=== PATIENT | female | born 1960 | race American Indian/Alaskan Native ===

== ENCOUNTER → 2016-04-19 08:05 | Outpatient (CLI) | payer MEDICARE ==
[2014-11-30 13:08] VITALS: BMI 26.3
[~2016-04-19 08:05] MED LIST: BAYER CHEWABLE81 MG PO; BUPROPION XL300 MG PO; COLACE100 MG PO; FERROUS SULFAT325 MG PO; FISH OIL 1,0001 CA1 PO; FLOVENT HFA 11012 GM INH; GLUCOPHAGE500 MG PO; IMITREX50 MG PO; LITHIUM CARBON300 MG PO; MACRODANTIN100 MG PO; NEURONTIN 400400 MG PO; NEXIUM40 MG PO; NIASPAN1000 MG PO; PHENERGAN25 M1 PO; PRAVACHOL80 MG PO; SEROQUEL300 MG PO; SINGULAIR10 MG PO; SYNTHROID50 MCG PO; TRAZODONE HCL150 MG PO; TRIGLIDE160 MG PO; ZANAFLEX4 MG PO; ZANTAC150 MG PO; ZOLOFT100 MG PO
== END | disposition home or self-care (01) ==
LOC: D.CT 08:00
DX: R10.11 Right upper quadrant pain (principal)

== ENCOUNTER 2017-06-12 17:10 | Emergency (ER) | payer MEDICARE ==
[2014-11-30 13:08] VITALS: BMI 26.3
[2017-06-12 17:49] LABS: BASOPHILS 0.2 % (0-2); EOSINOPHILS 1.7 % (0-7); HEMATOCRIT 38.6 % (36.0-48.0); IMMATURE GRANULOCYTES 0.1 % (0-5); LYMPHOCYTES 21.8 % (15-50); MCHC 33.7 g/dL (31.0-37.0); MCV 88.9 fL (80.0-100.0); MEAN PLATELET VOLUME 10.5 fL (7.4-10.4); MONOCYTES 7.2 % (2-11); RBC 4.34 10x6/uL (4.00-5.40); RDW 12.7 % (11.5-14.5); WBC 8.1 10x3/uL (4.8-10.8)
[2017-06-12 17:53] LABS: PLATELET COUNT 209 10x3/uL (130-400)
[2017-06-12 18:03] LABS: ALBUMIN 3.5 g/dL (3.4-5.0); ALKALINE PHOSPHATASE 120 U/L (46-116); ALT (SGPT) 39 U/L (10-68); CALC OSMOLALITY 271 mosm/kg (275-300); CALCIUM 8.8 mg/dL (8.5-10.1); CARBON DIOXIDE 26.4 mmol/L (21.0-32.0); CHLORIDE - SERUM 102 mmol/L (98-107); CREATININE - SERUM 0.7 mg/dL (0.6-1.3); GLUCOSE 124 mg/dL (74-106); SODIUM 136 mmol/L (136-145); UREA NITROGEN 10 mg/dL (7-18); eGFR NON AFRICAN AMERICAN > 90 mL/min (90-120)
[2017-06-12 18:16] LABS: UDS - AMPHET NEGATIVE QUAL (NEGATIVE); UDS - BARB NEGATIVE QUAL (NEGATIVE); UDS - BENZO NEGATIVE QUAL (NEGATIVE); UDS - COCAINE NEGATIVE QUAL (NEGATIVE); UDS - OPIATE NEGATIVE QUAL (NEGATIVE); UDS - PCP NEGATIVE QUAL (NEGATIVE); UDS - THC NEGATIVE QUAL (NEGATIVE)
[2017-06-12 19:59] LABS: APPEARANCE CLEAR (CLEAR); BILIRUBIN NEGATIVE (NEGATIVE); COLOR YELLOW (YELLOW); GLUCOSE NEGATIVE (NEGATIVE); KETONE NEGATIVE (NEGATIVE); NITRITE NEGATIVE (NEGATIVE); PROTEIN NEGATIVE (NEGATIVE); SPECIFIC GRAVITY 1.015 (1.005-1.020); UROBILINOGEN NORMAL (NORMAL)
== END 2017-06-12 23:33 ==
LOC: D.ER 17:10
PROVIDERS: Emergency Medicine
DX: R45.851 Suicidal ideations (principal); F33.9 Major depressive disorder, recurrent, unspecified; F17.200 Nicotine dependence, unspecified, uncomplicated; E11.9 Type 2 diabetes mellitus without complications

== ENCOUNTER 2017-08-28 02:32 | Emergency (ER) | payer MEDICARE ==
[2014-11-30 13:08] VITALS: BMI 26.3
[2017-10-29] MEDS ORDERED: PROVENTIL HFA6.7 GM INH (13:45)
[2017-10-29] MEDS ORDERED: PEPCID20 MG PO (13:46)
[2017-10-29] MEDS ORDERED: ATIVAN1 MG PO (13:47)
[2017-10-29] MEDS ORDERED: RISPERDAL1 MG PO (13:48)
== END 2017-08-28 05:32 | disposition home or self-care (01) ==
LOC: D.ER 02:32
DX: S43.004A Unspecified dislocation of right shoulder joint, initial encounter (principal); W19.XXXA Unspecified fall, initial encounter; Y93.89 Activity, other specified; Y92.019 Unspecified place in single-family (private) house as the place of occurrence of the external cause; Z85.3 Personal history of malignant neoplasm of breast; E11.9 Type 2 diabetes mellitus without complications; Z90.13 Acquired absence of bilateral breasts and nipples

== ENCOUNTER → 2017-09-12 07:28 | Outpatient (CLI) | payer MEDICARE, MEDICAID ==
[2014-11-30 13:08] VITALS: BMI 26.3
[~2017-09-12 07:28] MED LIST changes: +ATIVAN1 MG PO; +DILAUDID4 MG PO; +PEPCID20 MG PO; +PROVENTIL HFA6.7 GM INH; +RISPERDAL1 MG PO
== END | disposition home or self-care (01) ==
LOC: D.MRI 07:28
DX: M25.511 Pain in right shoulder (principal)

== ENCOUNTER 2017-10-30 07:50 | Day surgery (SDC) | payer MEDICARE, MEDICAID ==
[2017-10-29 14:43] LABS: HEMATOCRIT 39.1 % (36.0-48.0); HEMOGLOBIN 13.3 g/dL (12-16); MCH 28.8 pg (26.0-34.0); MCV 84.6 fL (80.0-100.0); MEAN PLATELET VOLUME 11.2 fL (7.4-10.4); RBC 4.62 10x6/uL (4.00-5.40); RDW 12.3 % (11.5-14.5); WBC 5.7 10x3/uL (4.8-10.8)
[2017-10-29 14:44] LABS: ANION GAP 9.4 mmol/L (8-16); CARBON DIOXIDE 28.5 mmol/L (21.0-32.0); CREATININE - SERUM 0.9 mg/dL (0.6-1.3); POTASSIUM - SERUM 3.9 mmol/L (3.5-5.1)
[~2017-10-30] VITALS: Ht 170.2 cm; Wt 72.7 kg
--- NOTE | ~2017-10-30 | OP ---
PATIENT NAME: LUCRETIA PIZANO MEDICAL RECORD: [id number] :60 LOCATION:[facility] ADMISSION DATE: SURGEON: DIMA GAR MD DATE OF OPERATION: 10/30/2017 PREOPERATIVE DIAGNOSES: 1. Rotator cuff tear of the right shoulder. 2. Greater tuberosity fracture of the right shoulder. 3. Impingement syndrome of the right shoulder. POSTOPERATIVE DIAGNOSES: 1. Rotator cuff tear of the right shoulder. 2. Greater tuberosity fracture of the right shoulder. 3. Impingement syndrome of the right shoulder. PROCEDURES: 1. Open reduction internal fixation of the posterior greater tuberosity of the right shoulder. 2. Open rotator cuff repair of the anterior supraspinatus tendon of the right shoulder. 3. Arthroscopic subacromial decompression, acromioplasty, and bursectomy. SURGEON: Dima Gar MD ANESTHESIA: General. INTRAOPERATIVE COMPLICATIONS: None. SUMMARY OF PATHOLOGIC FINDINGS: As predicted by the preoperative imaging, the patient had a fracture of the posterior aspect of the lesser tuberosity with retraction of the infraspinatus tendon approximately 18 mm from its origin. The posterior aspect of the supraspinatus tendon was torn. The patient also had a severe downward sloping acromion. OPERATIVE SUMMARY IN DETAIL: After obtaining the appropriate preoperative orthopedic surgery consent as well as anesthetic consultation, evaluation and clearance, the patient was brought to the operating room and placed on the operating table in supine position. After general laryngeal mask airway was administered, the patient was placed in the left lateral decubitus position. All pressure points were well padded to include down leg peroneal pad as well as axillary roll. The patient was held firmly to the operating table using vacuum pack suction system. Right upper extremity and shoulder were then prepped and draped in routine sterile fashion. The arm was held in Arthrex traction boom at 30 degrees of forward flexion, 30 degrees of abduction with 10 pounds of traction laterally. Arthroscopy was established in the glenohumeral joint from the posterior portal. Diagnostic arthroscopy at this point basically showed the patient to have the retracted fragment with substantial amounts of intra-articular inflammation; however, the glenohumeral joint remained in good condition and there was no evidence of an anterior Bankart lesion. The labrum was in good overall position. Having completed this, arthroscopy was turned to the subacromial space. While in the subacromial space, accessory lateral portal was created so the [facility] tissue ablation system could be utilized to denude the undersurface of the acromion of all soft tissue elements and release the coracoacromial OPERATIVE REPORT [id number] LUCRETIA PIZANO. A 5.0 barrel bur was then used for acromioplasty at the level of the acromioclavicular joint. At this point, further identification was carried out and because the fragment was so large, I decided that open fixation was going to be better for both the rotator cuff and for the large posterior fragment of the greater tuberosity. Mildly posterior based incision was taken off laterally. This was taken down to the superficial and deep fascia of the deltoid, which was retracted. Serial and sequential mobilization of the large fragment was done. It was then advanced to its anatomic position on the humerus and while it was held in this place, it was pinned with guidewires with 045 compression screws from [email or web address]. These 045 screws were then deployed to hold this large portion and good stability was achieved. Anterior to that, the cortex of the remaining anterior greater tuberosity was debrided back to stable cancellous bone and then a combination of 4 SwiveLocks from Arthrex, 2 being 5.5 and 2 being 4.75 were utilized to reapproximate the rotator cuff anteriorly. This all resulted in a very nice stable construct to the entire rotator cuff as well as fixation of the lesser tuberosity. Having completed this, copious irrigation was then followed by a deep closure of the deltoid with #1 Vicryl, followed by 2-0 Vicryl. Both arthroscopic portals and final skin closure was done with 4-0 Prolene. Sterile dressings were applied. The patient was awakened and taken to recovery room in stable condition. All final needle and sponge counts were correct. TRANSINT:[id number] Voice Confirmation ID: [id number] DOCUMENT ID: [id number] RIN WRIGHT, DIMA ABBASI at 1330 CC: [id number] DICTATION DATE: 10/30/17 1155 HEAD END DESIZING MACHINE OPERATOR: 10/30/17 1222 [facility] [address] [place] [address]
[~2017-10-30 07:50] MED LIST changes: -DILAUDID4 MG PO
[2017-10-30 08:12] VITALS: BP 115/66; Ht 170.2 cm; Wt 72.7 kg
[2017-10-30] MEDS ORDERED: DILAUDID4 MG PO (11:17)
== END 2017-10-30 13:30 | disposition home or self-care (01) ==
LOC: D.OPS 07:50 → D.PAN 11:00 → D.OPS 13:30
PROVIDERS: Anesthesiology
DX: S43.304A Dislocation of unspecified parts of right shoulder girdle, initial encounter (principal); M25.511 Pain in right shoulder; S42.251A Displaced fracture of greater tuberosity of right humerus, initial encounter for closed fracture; M25.811 Other specified joint disorders, right shoulder

== ENCOUNTER 2017-12-22 19:25 | Observation (INO) | payer MEDICARE, MEDICAID ==
[~2017-12-22] VITALS: Ht 170.2 cm; Wt 73.6 kg
--- NOTE | ~2017-12-22 | HEMODYNAMI ---
PATIENT:LUCRETIA PIZANO MEDICAL RECORD: [id number] : 60 [id number] ADMISSION DATE: 12/22/17 Generatedon:12/23/201713:01 Patient name: LUCRETIA PIZANO Patient #: [id number] SSN: : 1960 Date of study: 12/23/2017 Page: Of Hemodynamic Procedure Report Patient Data Patient Demographics Procedure consent was obtained First Name: LUCRETIA Gender: Female Last Name: HARINDER : 1960 [facility] Initial: FLO Age: 57 year(s) Patient #: [id number] Race: Unknown Additional ID: [id number] Contact details Address: [address] [place] [address] State: [place] City: [facility] [place] [place] Zip code: [address] Past Medical History Allergies: No known allergies Admission Admission Data Admission Date: 12/22/2017 Admission Time: 21:45 [facility] Results Lab Result Date: 12/23/2017 Lab Result Time: 0:00 Biochemistry Name Units Result Min Max BUN mg/dl 13 --(--*-)-- 7 18 Creatinine mg/dl 0.8 --(-*--)-- 0.6 1.3 CBC Name Units Result Min Max Hemoglobin g/dl 12.1 *-(----)-- 13.5 17.5 Procedure Procedure Types Cath Procedure Diagnostic Procedure LHC LHC w/Coronaries FFR/IVUS Intra-Coronary IVUS Initial Sedation Charges Moderate Sedation up to 15 minutes Procedure Description Procedure Date Procedure Date: 12/23/2017 Procedure Start Time: 12:34 Procedure End Time: 13:00 Procedure Staff Name Function Chris Oliveira MD Performing Physician Ondina Jorge RT Scrub Jazzmine Cee RT Monitor Froylan Vo RT Water Treatment Plant Repairer Phuc Redding RN Nurse Procedure Data Cath Procedure Fluoroscopy Diagnostic fluoroscopy Total fluoroscopy Time: 3.4 time: 3.4 min min Diagnostic fluoroscopy Total fluoroscopy dose: 385 dose: 385 mGy mGy Contrast Material Contrast Material Type Amount (ml) Isovue 300 67 Entry Location Entry Primary Successful Side Size Upsize Upsize Entry Closure Succes sful Closure Location (Fr) 1 (Fr) 2 (Fr) Remarks Device Remarks Femoral Right 5 Fr 6 Fr Exoseal artery Short Estimated blood loss: 5 ml Diagnostic catheters Device Type Used For End Catheter Placement MULTIPACK JL 4.0 5Fr Procedure catheter MULTIPACK 3DRC 5Fr Procedure catheter MULTIPACK Pigtail 5 Fr Procedure catheter Procedure Complications No complications Procedure Medications Medication Administration Route Dosage Oxygen etCO2 Nasal cannula 2 l/min Lidocaine 2% added to field 20 Heparin Flush Bag added to field 2 bags (1000units/500ml NS) 0.9% NaCl I.V. 100 ml/hr Fentanyl I.V. 50 mcg Versed I.V. 1 mg Versed I.V. 1 mg Fentanyl I.V. 50 mcg Versed I.V. 1 mg Fentanyl I.V. 50 mcg Heparin Bolus I.V. 5000 units Hemodynamics Rest HGB: 12.1 (g/dl) Heart Rate: 65 (bpm) Pressure Samples Time Site Value (mmHg) Purpose Heart Use Rate(bpm) 12:42 LV 123/-5,16 Snapshot 72 Gradients Valve Time Site Site Mean SEP/DFP Peak To Heart Use 1 2 (mmHg) (sec/min) Peak Rate (mmHg) (bpm) Aortic 12:43 LV AO 71 Snapshots Pre Cath Intra NCS Post Cath Vital Signs Time Heart Resp SPO2 etCO2 NIBP (mmHg) Rhythm Pain Sedation Rate (ipm) (%) (mmHg) Status Level (bpm) 12:23:39 64 13 92 0 131/73(105) NSR 0 (11) 10(A) , No pain 12:28:18 67 15 93 30.7 121/73(98) NSR 0 (11) 10(A) , No pain 12:32:58 66 14 93 1.4 120/71(96) NSR 0 (11) 10(A) , No pain 12:37:39 63 15 92 5.2 109/64(93) NSR 0 (11) 9(A) , No pain 12:42:17 69 16 94 0 119/65(85) NSR 0 (11) 9(A) , No pain 12:46:56 74 16 93 12.7 105/68(89) NSR 0 (11) 9(A) , No pain 12:51:33 74 15 92 1.5 104/66(87) NSR 0 (11) 9(A) , No pain 12:56:09 75 14 93 14.2 105/68(92) NSR 0 (11) 10(A) , No pain Medications Time Medication Route Dose Verified Delivered Reason Notes Effectiveness by by 12:31:13 Oxygen etCO2 2 Chris Buffie used for Nasal l/min Tee Redding RN procedure cannula 12:31:19 Lidocaine 2% added 20ml Chris Chris for local to vial Tee Oliveira MD anesthetic field 12:31:25 Heparin Flush added 2 Chris Chris used for Bag to bags Tee Oliveira MD procedure (1000units/500ml field NS) 12:31:35 0.9% NaCl I.V. 100 Chris Buffie Per physician ml/hr Tee Redding RN 12:31:39 Versed I.V. 1 mg Chris Buffie for sedation Tee Redding RN 12:31:49 Fentanyl I.V. 50 Chris Buffie for sedation mcg Tee Redding RN 12:35:43 Versed I.V. 1 mg Chris Buffie for sedation Tee Redding RN 12:35:46 Fentanyl I.V. 50 Chris Buffie for sedation mcg Tee Redding RN 12:39:19 Versed I.V. 1 mg Chris Buffie for sedation Tee Redding RN 12:39:22 Fentanyl I.V. 50 Chris Buffie for sedation mcg Tee Redding RN 12:45:56 Heparin Bolus I.V. 5000 Chris Buffie for verif ied units Tee Redding RN anticoagulation with dr oliveira Procedure Log Time Note 12:08:52 Froylan Vo RT(R) sent for patient. Start room use. 12:08:53 Time tracking: Regular hours (M-F 7:00 - 5:00) 12:08:57 Plan of Care:Hemodynamics will remain stable., Cardiac rhythm will remain stable., Comfort level will be maintained., Respiratory function will remain adequate., Patient/ family verbilizes understanding of procedure., Procedure tolerated without complication., Recovers from procedure without complications.. 12:09:14 H&P Date Dictated: 12/22/2017 Within 30 days and on chart.. 12::51 Lab Result : BUN 13 mg/dl 12::51 Lab Result : Creatinine 0.8 mg/dl 12::51 Lab Result : Hemoglobin 12.1 g/dl 12:15:19 Patient received from Med II to CCL 1 Alert and oriented. Tansferred to table in Supine position. 12:15:20 Warm blankets applied, and edith hugger turned on for patient comfort. 12:15:21 Correct patient and procedure confirmed by team. 12:15:22 Signed procedure consent form obtained from patient. 12:15:23 ECG and BP/O2 sat monitors applied to patient. 12:22:45 Vital chart was started 12:22:46 Baseline sample Acquired. 12::51 Rhythm: sinus rhythm 12::53 Full Disclosure recording started 12:23:00 Pre-procedure instructions explained to patient. 12:23:12 Pre-op teaching completed and patient verbalized understanding. 12:23:14 Family in patients room. 12:23:16 Patient NPO since Midnight. 12:23:24 Patient allergic to No known allergies 12:23:25 Is the patient allergic to Iodine/contrast media? No. 12:23:28 Is patient on blood thinner?No 12:23:29 Patient diabetic? Yes. 12:23:32 If diabetic: On Metformin? Yes 12:23:34 If on Metformin: Last Dose? 12/21/2017 12:23:40 Previous problem with sedation/anesthesia? No ? 12:23:42 Snore? Yes 12:23:43 Sleep apnea? Yes 12:23:45 Deviated septum? No 12:23:45 Opens mouth fully? Yes 12:23:46 Sticks out tongue? Yes 12:23:52 Airway obstruction? Yes ASTHMA 12:23:54 Dentures? No ? 12:23:57 Modified Ravi's test Ulnar < 7 seconds 12:23:59 Patient pain scale 0/10 ?. 12:24:05 IV patent on arrival in right forearm with 0.9% NaCl at [facility]. 12:24:07 Lab results completed and on chart. 12:24:10 Right Radial & Right Groin area was prepped with chlora-prep and draped in sterile fashion 12:24:11 Alarms reviewed by RCas NCas 12:24:12 Sharps counted by scrub and verified by R.N. 12:24:16 ACIST Syringe (47615) opened to sterile field. 12:24:17 Bag Decanter (2002S) opened to sterile field. 12:24:18 ACIST Hand Control (28142) opened to sterile field. 12:24:18 ACIST Manifold (49462) opened to sterile field. 12:24:23 Tegaderm 4 x 4 (1626W) opened to sterile field. 12:24:24 Medline Cath Pack ([id number]) opened to sterile field. 12:24:25 DIAGNOSTIC WIRE .035 260cm J wire (158553) opened to sterile field. 12:25:13 STOPCOCK 3-Way Large Bore (F11000) opened to sterile field. 12::45 --------ALL STOP TIME OUT------ 12::45 Final Timeout: patient, procedure, and site verified with staff and physician. All members of the team are in agreement. 12:25:47 Right Radial & Right Groin site verified by team. 12:25:50 Physical assessment completed. ASA score P 2 - A patient with mild systemic disease as per Chris Oliveira MD. 12:25:54 Sedation plan: IV Moderate Sedation Medication:Versed, Fentanyl 12::41 SHEATH 5FR [place] (QCL734) opened to sterile field. 12:27:49 Use device set Multipack Set 12:27:51 DIAGNOSTIC Multipack 5Fr catheter set (WY4282) opened to sterile field. 12:31:13 Oxygen 2 l/min etCO2 Nasal cannula was administered by Phuc Redding RN; used for procedure; 12:31:19 Lidocaine 2% 20ml vial added to field was administered by Chris Oliveira MD; for local anesthetic; 12:31:25 Heparin Flush Bag (1000units/500ml NS) 2 bags added to field was administered by Chris Oliveira MD; used for procedure; 12::35 0.9% NaCl 100 ml/hr I.V. was administered by Phuc Redding RN; Per physician; 12:31:39 Versed 1 mg I.V. was administered by Phuc Redding RN; for sedation; 12::49 Fentanyl 50 mcg I.V. was administered by Phuc Redding RN; for sedation; 12:33:45 Zero performed for pressure channel P1 12:33:54 Procedure started. 12:34:39 Local anesthetic to right femoral artery with Lidocaine 2% by Chris Oliveira MD.INITIAL ACCESS ONLY 12:35:43 Versed 1 mg I.V. was administered by Phuc Redding RN; for sedation; 12:35:46 Fentanyl 50 mcg I.V. was administered by Phuc Redding RN; for sedation; 12:35:57 A 5 Fr sheath was inserted into the Right Femoral artery 12:36:01 Zero performed for pressure channel P1 12:36:51 A MULTIPACK JL 4.0 5Fr catheter was advanced over the wire and used for Procedure. 12:37:32 LCA angiography performed. 12:38:12 Catheter exchanged over wire. 12:39:10 A MULTIPACK 3DRC 5Fr catheter was advanced over the wire and used for Procedure. 12:39:19 Versed 1 mg I.V. was administered by Phuc Redding RN; for sedation; 12:39:22 Fentanyl 50 mcg I.V. was administered by Phuc Redding RN; for sedation; 12:39:58 RCA angiography performed. 12:40:01 Catheter exchanged over wire. 12:40:39 A MULTIPACK Pigtail 5 Fr catheter was advanced over the wire and used for Procedure. 12:42:25 LV gram done using HEALY 12:42:27 Injector settings: Ml/sec: 10, Volume: 20, 12:42:45 LV hemodynamics recorded. 12:43:05 EF : 55 % 12:43:19 Catheter removed. 12:43:40 SHEATH 6FR [place] (THX959) opened to sterile field. 12:43:41 BMW 300cm [place] 2 J wire ([id number]) opened to sterile field. 12:43:42 INFLATOR Merit BasixCompak (LW3600) opened to sterile field. 12:43:42 [place] IVUS Catheter (84961E) opened to sterile field. 12:44:46 Sheath upsized to a 6 Fr Short. 12:44:58 TUBING High Pressure Extension Tubing (Tee) (QU0517T) opened to sterile field. 12:45:22 6 Fr XBLAD 3.5 guide catheter was inserted over the wire 12:45:56 Heparin Bolus 5000 units I.V. was administered by Phuc Redding RN; for anticoagulation; verified with dr oliveira 12:48:53 BMW 300 wire advanced. 12:48:55 Wire advanced across lesion. 12:49:10 IVUS catheter advanced over wire. 12:50:20 IVUS pass to LAD lesion performed. 12:51:49 IVUS catheter removed over wire. 12:52:54 Wire removed. 12:52:55 Guide catheter removed. 12:53:07 EXOSEAL 6Fr (EX600) opened to sterile field. 12:54:15 Sheath removed intact; hemostasis achieved with Exoseal to the Right Femoral artery. 12:54:24 Procedure ended.(Physican Out) 12:56:11 Fluoroscopy time 03.40 minutes. 12:56:15 Fluoroscopy dose: 385 mGy 12:56:15 Flurop Dose total: 385 12:56:18 Contrast amount:Isovue 300 67ml. 12:56:20 Sharps counted by scrub and verified by R.N. 12:56:23 Post-op/insertion site Right Femoral artery dressed using a 4 x 4 and Tegaderm. 12:56:30 Post-procedure physical assessment completed. ASA score P 2 - A patient with mild systemic disease as per Chris Oliveira MD. 12:56:33 Post procedure rhythm: unchanged. 12:56:37 Estimated blood loss: 5 ml 12:56:38 Post procedure instruction explained to patient.Patient verbalizes understanding. 12:56:39 Patient needs reinforcement of post procedure teaching. 12:57:49 Procedure type changed to Cath procedure, Diagnostic procedure, LHC, LHC w/Coronaries, FFR/IVUS, Intra-Coronary IVUS Initial, Sedation Charges, Moderate Sedation up to 15 minutes 12:59:51 Procedure and supply charges have been captured, reviewed, submitted and are correct. 12:59:57 Procedure Complication : No complications 12:59:58 Vital chart was stopped 12:59:59 See physician's report for complete and final results. 13:00:00 Report given to Pre/Post Procedure Room. 13:00:03 Patient transfered to Pre/Post Procedure Room with Bed. 13:00:05 Procedure ended. 13:00:05 Full Disclosure recording stopped 13:00:10 End room use (Document Last) Device Usage Item Name Manufacture Quantity Catalog Hospital Part Current Minimal L ot# / Number Charge Number Stock Stock Serial# Code ACIST Acist 1 18764 874702 222985 049523 20 Syringe Medical (73442) Systems Inc Bag Microtek 1 894687 64315 965981 5 Decanter Medical Inc. () ACIST Hand Acist 1 97917 866831 186015 171741 5 Control Medical (50395) Systems Inc ACIST Acist 1 66262 306228 895375 592887 5 Manifold Medical (89211) Systems Inc Tegaderm 4 3M 1 1626W 285288 767856 917016 5 x 4 (1626W) Medline Cardinal 1 [id number] 338220 56390 524620 5 Cath Pack Health ([id number]) DIAGNOSTIC St Ananth 1 469031 725767 903102 320328 30 WIRE .035 260cm J wire (040801) [facility] 1 L99586 497763 6208 955388 5 3-Way Large Bore (L09322) SHEATH 5FR Terumo 1 WPJ657 796339 785224 022255 40 [place] (MKP667) DIAGNOSTIC Cardinal 1 RS8921 615605 62978 969773 30 Multipack Health 5Fr catheter set (SU1160) MULTIPACK Cardinal 1 746960 5 JL 4.0 5Fr Health catheter MULTIPACK Cardinal 1 981400 5 3DRC 5Fr Health catheter MULTIPACK Cardinal 1 309153 5 Pigtail 5 Health Fr catheter SHEATH 6FR Terumo 1 STO228 934653 279343 369637 40 [place] (SUZ923) BMW 300cm [place] 1 [id number] 693442 335615 743170 5 [place] 2 Vascular J wire (5433016P) INFLATOR Merit 1 BW7734 559006 197416 260088 15 Merit Medical BasixCompak (VP4061) [place] 1 45997O 196916 761297 458411 8 [place] IVUS Catheter (52633C) TUBING High Merit 1 BE7922Q 016610 13723 193025 10 Pressure Medical Extension Tubing (Oliveira) (TL8529A) EXOSEAL 6Fr Cardinal 1 EX600 876093 786967 964974 10 (EX600) Health Signature Audit [place] Stage Time Signature Unsigned Intra-Procedure 12/23/2017 Jazzmine Cee 1:01:21 PM RT(R) Signatures Monitor : Jazzmine Cee Signature : RT Date : Time : [id number] [place] [address]
[~2017-12-22 19:25] MED LIST changes: +ALBUTEROL SULF8.5 GM INH; +DILAUDID4 MG PO; -PROVENTIL HFA6.7 GM INH; +SYNTHROID25 MCG PO; -SYNTHROID50 MCG PO
[2017-12-22 20:05] VITALS: BP 142/84
[2017-12-22 20:18] LABS: BASOPHILS 0.3 % (0-2); EOSINOPHILS 1.4 % (0-7); HEMATOCRIT 37.2 % (36.0-48.0); HEMOGLOBIN 12.6 g/dL (12-16); IMMATURE GRANULOCYTES 0.3 % (0-5); LYMPHOCYTES 33.2 % (15-50); MCHC 33.9 g/dL (31.0-37.0); MCV 85.7 fL (80.0-100.0); MEAN PLATELET VOLUME 11.4 fL (7.4-10.4); MONOCYTES 7.3 % (2-11); NEUTROPHILS 57.5 % (40-80); PLATELET COUNT 142 10x3/uL (130-400); RBC 4.34 10x6/uL (4.00-5.40); WBC 6.3 10x3/uL (4.8-10.8)
[2017-12-22 20:30] VITALS: BP 154/78
[2017-12-22 20:35] LABS: INR 0.94 (0.85-1.17); PROTIME 12.2 SECONDS (11.6-15.0)
[2017-12-22 20:36] LABS: D-DIMER-QUANTITATIVE 0.28 ug/mLFEU (0.20-0.54)
[2017-12-22 20:49] LABS: ALBUMIN 3.7 g/dL (3.4-5.0); ALKALINE PHOSPHATASE 93 U/L (46-116); ALT (SGPT) 35 U/L (10-68); BILIRUBIN - TOTAL 0.19 mg/dL (0.2-1.3); CALC OSMOLALITY 278 mosm/kg (275-300); CALCIUM 9.2 mg/dL (8.5-10.1); CARBON DIOXIDE 25.3 mmol/L (21.0-32.0); CHLORIDE - SERUM 105 mmol/L (98-107); CREATININE - SERUM 0.8 mg/dL (0.6-1.3); GLUCOSE 90 mg/dL (74-106); PROTEIN - SERUM 6.4 g/dL (6.4-8.2); SODIUM 140 mmol/L (136-145); UREA NITROGEN 13 mg/dL (7-18); eGFR NON AFRICAN AMERICAN 78 mL/min (90-120)
[2017-12-22 20:59] LABS: CKMB 0.2 U/L (0.0-3.6); CREATINE KINASE 31 UL (21-215); LIPASE 264 U/L (73-393)
[2017-12-22 21:00] VITALS: BP 154/79
[2017-12-22 21:04] LABS: TROPONIN-I < 0.017 ng/mL (0.000-0.060)
[2017-12-22 21:16] LABS: APTT < 22.0 SECONDS (22.8-39.4)
[2017-12-23 00:59] VITALS: BP 111/61
[2017-12-23 01:28] VITALS: Ht 170.2 cm; Wt 73.6 kg
[2017-12-23 03:00] LABS: BASOPHILS 0.4 % (0-2); EOSINOPHILS 1.7 % (0-7); HEMATOCRIT 35.8 % (36.0-48.0); HEMOGLOBIN 12.1 g/dL (12-16); IMMATURE GRANULOCYTES 0.4 % (0-5); LYMPHOCYTES 41.4 % (15-50); MCH 28.9 pg (26.0-34.0); MCHC 33.8 g/dL (31.0-37.0); MCV 85.6 fL (80.0-100.0); MEAN PLATELET VOLUME 10.9 fL (7.4-10.4); MONOCYTES 7.1 % (2-11); PLATELET COUNT 164 10x3/uL (130-400); RBC 4.18 10x6/uL (4.00-5.40); RDW 13.1 % (11.5-14.5); WBC 5.2 10x3/uL (4.8-10.8)
[2017-12-23 03:12] LABS: CALC OSMOLALITY 286 mosm/kg (275-300); CALCIUM 8.9 mg/dL (8.5-10.1); CARBON DIOXIDE 29.9 mmol/L (21.0-32.0); CHLORIDE - SERUM 109 mmol/L (98-107); CREATINE KINASE 25 UL (21-215); CREATININE - SERUM 0.8 mg/dL (0.6-1.3); GLUCOSE 102 mg/dL (74-106); MAGNESIUM - SERUM 1.8 mg/dL (1.8-2.4); POTASSIUM - SERUM 3.9 mmol/L (3.5-5.1); SODIUM 144 mmol/L (136-145); UREA NITROGEN 13 mg/dL (7-18); eGFR NON AFRICAN AMERICAN 78 mL/min (90-120)
[2017-12-23 03:18] LABS: TROPONIN-I < 0.017 ng/mL (0.000-0.060)
[2017-12-23 06:56] VITALS: BP 118/63
[2017-12-23 08:21] VITALS: BP 122/65
[2017-12-23 08:22] LABS: CKMB 0.2 U/L (0.0-3.6); CREATINE KINASE 16 UL (21-215)
[2017-12-23 08:23] LABS: TROPONIN-I < 0.017 ng/mL (0.000-0.060)
[2017-12-23] MEDS ORDERED: NORCO 5/325 TAB1 TAB PO (10:10)
[2017-12-23 11:23] VITALS: BP 115/63
== END 2017-12-23 17:21 | disposition home or self-care (01) ==
LOC: D.ER 19:25 → D.EDHOLD 21:45 → OBSVTIME 21:45 → D.M2 21:45 → D.SDCHOLD 12-23 11:56 → D.M2 12-23 12:00 → D.CLR 12-23 13:07
PROVIDERS: Family Medicine
DX: R07.89 Other chest pain (principal); I25.10 Atherosclerotic heart disease of native coronary artery without angina pectoris; Z86.73 Personal history of transient ischemic attack (TIA), and cerebral infarction without residual deficits; E11.9 Type 2 diabetes mellitus without complications

== ENCOUNTER → 2018-01-23 08:24 | Outpatient (CLI) | payer MEDICARE, MEDICAID ==
[~2018-01-23 08:24] MED LIST changes: +NORCO 5/325 TAB1 TAB PO
== END | disposition home or self-care (01) ==
LOC: D.CT 08:24
DX: M25.511 Pain in right shoulder (principal)

== ENCOUNTER 2018-02-05 07:50 | Day surgery (SDC) | payer MEDICARE, MEDICAID ==
[2018-02-03 11:51] LABS: BASOPHILS 0.2 % (0-2); EOSINOPHILS 2.3 % (0-7); HEMATOCRIT 38.7 % (36.0-48.0); HEMOGLOBIN 12.9 g/dL (12-16); IMMATURE GRANULOCYTES 0.2 % (0-5); LYMPHOCYTES 28.2 % (15-50); MCH 28.9 pg (26.0-34.0); MCHC 33.3 g/dL (31.0-37.0); MCV 86.8 fL (80.0-100.0); MEAN PLATELET VOLUME 10.7 fL (7.4-10.4); MONOCYTES 8.1 % (2-11); PLATELET COUNT 148 10x3/uL (130-400); RBC 4.46 10x6/uL (4.00-5.40); RDW 12.9 % (11.5-14.5); WBC 4.4 10x3/uL (4.8-10.8)
[2018-02-03 12:02] LABS: APTT 25.7 SECONDS (22.8-39.4)
[2018-02-03 12:04] LABS: INR 0.98 (0.85-1.17); PROTIME 12.6 SECONDS (11.6-15.0)
[2018-02-03 12:05] LABS: CALC OSMOLALITY 277 mosm/kg (275-300); CALCIUM 8.9 mg/dL (8.5-10.1); CARBON DIOXIDE 27.3 mmol/L (21.0-32.0); CHLORIDE - SERUM 106 mmol/L (98-107); CREATININE - SERUM 0.8 mg/dL (0.6-1.3); GLUCOSE 112 mg/dL (74-106); POTASSIUM - SERUM 4.3 mmol/L (3.5-5.1); SODIUM 139 mmol/L (136-145); UREA NITROGEN 10 mg/dL (7-18); eGFR NON AFRICAN AMERICAN 78 mL/min (90-120)
[~2018-02-05] VITALS: Ht 170.2 cm; Wt 73.5 kg
--- NOTE | ~2018-02-05 | OP ---
PATIENT NAME: LUCRETIA PIZANO MEDICAL RECORD: [id number] :60 LOCATION:[facility] ADMISSION DATE: SURGEON: DIMA GAR MD DATE OF OPERATION: 02/05/2018 PREOPERATIVE DIAGNOSES: 1. Impingement syndrome with painful hardware of the right shoulder. 2. Adhesive capsulitis. POSTOPERATIVE DIAGNOSES: 1. Impingement syndrome with painful hardware of the right shoulder. 2. Acromioclavicular arthritis and biceps tendinitis. 3. Adhesive capsulitis. PROCEDURES: 1. Arthroscopic biceps tenotomy. 2. Arthroscopic removal of hardware. 3. Arthroscopic distal clavicle excision done through separate incision. 4. Arthroscopic subacromial decompression, acromioplasty, and bursectomy. 5. Manipulation. SURGEON: Dima Gar MD ANESTHESIA: General. INTRAOPERATIVE COMPLICATIONS: None. SUMMARY OF PATHOLOGIC FINDINGS: While it was felt that one of the screw heads may be prominent, it was likely somewhat prominent, cannot be sure if it was causing impingement or not. It did appear that the patient's biceps tendonitis was as problematic as anything as was the impingement. INDICATIONS: Ms. Pizano had a greater tuberosity avulsion fracture that was fixed openly with a cancellous compression screws. In the postoperative period, the patient had a substantial decrease in range of motion with pain. After a substantial amount of physical therapy, she failed to get her motion back. Radiographs showed that one of the screws might be proud, surgery was thusly scheduled as above. OPERATIVE SUMMARY IN DETAIL: After obtaining the appropriate preoperative orthopedic surgery consent as well as anesthetic consultation, evaluation and clearance, the patient was brought to the operating room and placed on the operating table in supine position. After adequate general laryngeal mask airway was administered, the patient was placed in a left lateral decubitus position. All pressure points were well padded to include down leg peroneal pad as well as axillary roll. The patient was held firmly to the operating table using vacuum pack suction system. Right upper extremity and shoulder were then prepped and draped in routine sterile fashion. The arm was held in the Arthrex traction boom at 30 degrees of forward flexion, 30 degrees of abduction, 10 pounds of traction laterally. Arthroscopy was established in the glenohumeral joint from the posterior portal. Anterior portal was established in the anterior safe interval. Diagnostic arthroscopy showed the patient's rotator cuff was sound without evidence of tear or rupture, however, the patient did have severe biceps tendinitis just at the transverse screw. Arthrex ablation system was utilized to tenotomize the tendon and after tendon tenotomy, OPERATIVE REPORT [id number] LUCRETIA PIZANO attention was turned to the subacromial space. While in the subacromial space, the patient had substantial amounts of scar tissue and substantial amounts of subacromial bursitis. This was all serially and sequentially taken down using the Arthrex resector and then the undersurface of the acromion was denuded of all soft tissue elements and the coracoacromial ligament was released. A 5.0 barrel bur was used to perform acromioplasty at the level of acromioclavicular joint and the distal clavicle having been found to be substantially arthritic was taken down 1 cm through an anterior arthroscopic portal. Having completed this, the head of the screw that was prominent was dissected down using the Arthrex tissue ablation system and then through a separate incision, a screwdriver was then placed and the screw was removed as it was found to be perhaps prominent. Second screw that was found was searched for and not found to be prominent as guided by preoperative radiographs. Therefore, I did leave this in place. Having completed this, the patient's arm was sterilely taken out of the traction boom and manipulation did result in good release of adhesions with both abduction, external rotation as well as forward flexion. Having completed this, arthroscopy portals were closed in routine interrupted fashion using 4-0 Prolene. Sterile dressings were applied. The patient was awakened and taken to the recovery room in stable condition. All final needle and sponge counts were correct. TRANSINT:[id number] Voice Confirmation ID: [id number] DOCUMENT ID: [id number] RIN WRIGHT, DIMA ABBASI at 0917 CC: [id number] DICTATION DATE: 02/06/18 1113 PC TECHNICIAN: 02/06/18 1339 [facility] 02/05/18 [address] [place] [address]
[2018-02-05 08:21] VITALS: BP 117/76; Ht 170.2 cm; Wt 73.5 kg
[2018-02-05] MEDS ORDERED: NORCO 10-325 TA1 TAB PO (13:05)
== END 2018-02-05 14:46 | disposition home or self-care (01) ==
LOC: D.OPS 07:50 → D.PAN 11:30 → D.OPS 11:30
PROVIDERS: Anesthesiology
DX: M75.41 Impingement syndrome of right shoulder (principal); M75.01 Adhesive capsulitis of right shoulder; T84.84XA Pain due to internal orthopedic prosthetic devices, implants and grafts, initial encounter; M13.811 Other specified arthritis, right shoulder; M75.21 Bicipital tendinitis, right shoulder; Z01.812 Encounter for preprocedural laboratory examination

== ENCOUNTER → 2018-05-15 11:57 | Outpatient (CLI) | payer MEDICARE, MEDICAID ==
[2018-02-05 08:21] VITALS: BMI 25.4
[~2018-05-15 11:57] MED LIST changes: +NORCO 10-325 TA1 TAB PO
== END | disposition home or self-care (01) ==
LOC: D.CT 11:57
DX: M25.511 Pain in right shoulder (principal); R07.89 Other chest pain

== ENCOUNTER 2018-08-12 17:04 | Emergency (ER) | payer MEDICARE, MEDICAID ==
[~2018-08-12] VITALS: Ht 170.2 cm; Wt 81.4 kg
[2018-08-12 17:09] VITALS: Ht 170.2 cm; Wt 81.4 kg
[2018-08-12] MEDS ORDERED: VENTILIN (17:14)
[2018-08-12 19:54] LABS: BASOPHILS 0.1 % (0-2); EOSINOPHILS 1.2 % (0-7); HEMATOCRIT 37.8 % (36.0-48.0); HEMOGLOBIN 12.7 g/dL (12-16); IMMATURE GRANULOCYTES 0.4 % (0-5); LYMPHOCYTES 21.3 % (15-50); MCH 29.3 pg (26.0-34.0); MCHC 33.6 g/dL (31.0-37.0); MCV 87.3 fL (80.0-100.0); MEAN PLATELET VOLUME 10.6 fL (7.4-10.4); MONOCYTES 7.3 % (2-11); NEUTROPHILS 69.7 % (40-80); PLATELET COUNT 149 10x3/uL (130-400); RBC 4.33 10x6/uL (4.00-5.40); RDW 12.8 % (11.5-14.5); WBC 6.9 10x3/uL (4.8-10.8)
[2018-08-12 20:10] LABS: ALBUMIN 3.8 g/dL (3.4-5.0); ALKALINE PHOSPHATASE 78 U/L (46-116); ALT (SGPT) 29 U/L (10-68); BILIRUBIN - TOTAL 0.57 mg/dL (0.2-1.3); CALC OSMOLALITY 282 mosm/kg (275-300); CALCIUM 8.8 mg/dL (8.5-10.1); CARBON DIOXIDE 26.5 mmol/L (21.0-32.0); CHLORIDE - SERUM 105 mmol/L (98-107); CREATININE - SERUM 0.7 mg/dL (0.6-1.3); GLUCOSE 92 mg/dL (74-106); POTASSIUM - SERUM 3.5 mmol/L (3.5-5.1); PROTEIN - SERUM 7.2 g/dL (6.4-8.2); SODIUM 143 mmol/L (136-145); UREA NITROGEN 8 mg/dL (7-18); eGFR NON AFRICAN AMERICAN > 90 mL/min (90-120)
[2018-08-12 20:22] LABS: CREATINE KINASE 81 UL (21-215)
[2018-08-12 20:28] LABS: TROPONIN-I < 0.017 ng/mL (0.000-0.060)
[2018-08-12] MEDS ORDERED: NAPROSYN500 MG PO (20:48)
[2018-08-12] MEDS ORDERED: ZITHROMAX TRI-500 MG PO (20:48)
[2018-08-12 21:11] VITALS: BP 123/68
== END 2018-08-12 21:12 | disposition home or self-care (01) ==
LOC: D.ER 17:04
PROVIDERS: Family Medicine
DX: R07.81 Pleurodynia (principal)